=== PATIENT | female | born 1970 | race Caucasian/White ===

== ENCOUNTER 2021-11-06 07:42 | Day surgery (SDC) | payer SELFPAY ==
[2021-11-05 10:57] LABS: CARBON DIOXIDE,CO2 28.2 mmol/L (21.0-32.0); POTASSIUM,K 3.7 mmol/L (3.5-5.1)
[~2021-11-06 07:42] MED LIST: Sodium Chloride 0.9% 10 ML Syringe FLUSH PRN; Sodium Chloride 0.9% 2.5 ML Syringe FLUSH PRN; Sodium Chloride 0.9% 20 ML SDV IV PRN; ceFAZolin 2 GM in Premix Bag 1 BAG IV ONE
[2021-11-06] MEDS: Lactated Ringers 1,000 ML IV SCH ×3 (08:04→22:47)
[2021-11-06] MEDS ORDERED: propofoL 100 ML ONE (08:04)
[2021-11-06] MEDS ORDERED: Water For Injection, Sterile 20 ML ONE (08:05)
[2021-11-06] MEDS ORDERED: Magnesium Sulfate (4.06 MEQ/ML) 5 GM/10 ML SDV ONE (08:05)
[2021-11-06] MEDS ORDERED: Dexmedetomidine 200 MCG/2 ML SDV ONE (08:05)
[2021-11-06] MEDS ORDERED: fentaNYL 250 MCG/5 ML SDV ONE (08:05)
[2021-11-06] MEDS ORDERED: Rocuronium Bromide 50 MG/5 ML Syringe ONE ×2 (08:05→11:18)
[2021-11-06] MEDS ORDERED: Ketamine 500 mg/10 ML MDV ONE (08:05)
[2021-11-06] MEDS ORDERED: Lidocaine 2% 5 ML SDV ONE (08:06)
[2021-11-06] MEDS ORDERED: Metoclopramide 10 MG/2 ML SDV IVPUSH PRN (08:12)
[2021-11-06] MEDS ORDERED: Naloxone 0.4 MG/ML SDV IVPUSH PRN (08:12)
[2021-11-06] MEDS ORDERED: Ondansetron 4 MG/2 ML SDV IVPUSH PRN ×2 (08:12→14:17)
[2021-11-06] MEDS ORDERED: fentaNYL 50 MCG/ML SDV IVPUSH PRN (08:12)
[2021-11-06] MEDS ORDERED: HYDROmorphone 1 MG/ML Syringe IVPUSH PRN (08:12)
[2021-11-06] MEDS ORDERED: Albuterol 0.083% 2.5 MG/3 ML Neb Soln NEB PRN (08:12)
[2021-11-06] MEDS ORDERED: Dexamethasone 4 MG/ML 5 ML MDV ONE (08:14)
[2021-11-06] MEDS ORDERED: ePHEDrine 50 MG/ML SDV ONE (09:59)
[2021-11-06] MEDS ORDERED: Glycopyrrolate 0.2 MG/ML SDV ONE (09:59)
[2021-11-06] MEDS ORDERED: Ondansetron 4 MG/2 ML SDV ONE (10:13)
[2021-11-06] MEDS ORDERED: Ketorolac 30 MG/ML SDV ONE (10:13)
[2021-11-06] MEDS ORDERED: Sugammadex Sodium 200 MG/2 ML VIAL ONE (10:13)
[2021-11-06] MEDS ORDERED: Fluorescein 5 ML Vial ONE (10:15)
[2021-11-06] MEDS ORDERED: Furosemide 40 MG/4 ML VIAL ONE (10:16)
[2021-11-06] MEDS ORDERED: Propofol 200 MG/20 ML SDV ONE (11:03)
[2021-11-06] MEDS ORDERED: Octyl 2-Cyanoacrylate 1 g/1 mL 1 APPLIC PEN ONE (11:49)
[2021-11-06] MEDS ORDERED: Morphine 4 MG/ML VIAL IVPUSH PRN (14:17)
[2021-11-06] MEDS ORDERED: Ketorolac 30 MG/ML SDV IVPUSH PRN (14:17)
[2021-11-06] MEDS ORDERED: Ketorolac 30 MG/ML SDV IVPUSH ONE (14:17)
[2021-11-06] MEDS ORDERED: Promethazine 25 MG/ML SDV IM PRN (14:17)
[2021-11-06] MEDS ORDERED: Acetaminophen/oxyCODONE 325-5 MG Tab PO PRN ×2 (14:17)
[2021-11-07 08:07] LABS: CARBON DIOXIDE,CO2 28.8 mmol/L (21.0-32.0); POTASSIUM,K 4.4 mmol/L (3.5-5.1)
== END 2021-11-07 10:45 | disposition home or self-care (01) ==
LOC: MW.SDS 07:42 → MW.OB 12:50 → MW.SDS 11-07 10:45
PROVIDERS: ATTEND Obstetrics & Gynecology
DX: N83.202 Unspecified ovarian cyst, left side (principal); N83.201 Unspecified ovarian cyst, right side; N83.8 Other noninflammatory disorders of ovary, fallopian tube and broad ligament; N80.0 Endometriosis of uterus; D25.9 Leiomyoma of uterus, unspecified; N92.1 Excessive and frequent menstruation with irregular cycle; F17.210 Nicotine dependence, cigarettes, uncomplicated; I10 Essential (primary) hypertension; Z79.83 Long term (current) use of bisphosphonates; Z79.899 Other long term (current) drug therapy; Z86.16 Personal history of COVID-19
CPT/HCPCS: 36415; 58571; 80048; 84703; 85025; 85027; 86850; 86900; 86901; A9270; J0131; J1100; J1170; J1885; J1940; J2704; J3010; J3475; J3490; J7030; J7120; 00840; J2405